=== PATIENT | female | born 1935 | race Caucasian/White ===

== ENCOUNTER 2023-11-13 21:26 | Emergency (ER) | payer MEDICARE ==
[~2023-11-13] VITALS: Ht 162.6 cm; Wt 79.4 kg
[2023-11-13 21:44] VITALS: BP 111/54; TEMP 98; O2SAT 98
[2023-11-13] MEDS ORDERED: FLUORESCEIN SODIUM OPHTH 1 EA STRIP ONE (21:52)
[2023-11-13] MEDS ORDERED: TETRAcaine 5 ML BOTTLE ONE (21:52)
[2023-11-13] MEDS ORDERED: AMOX875T2 PO (22:38)
[2023-11-13] MEDS ORDERED: POLY10DR OP (22:38)
[2023-11-13] MEDS ORDERED: SULF1TAB48 PO (22:38)
[2023-11-13] MEDS ORDERED: AMOXICILLIN TRIHYDRATE 250 MG CAPSULE ONE (22:40)
[2023-11-13] MEDS ORDERED: SULFAMETH/TRIMETH 800/160 MG 1 UDTAB TABLET ONE (22:41)
[2023-11-13] MEDS: SULFAMETH/TRIMETH 800/160 MG 1 UDTAB TABLET PO ONE (22:50)
[2023-11-13] MEDS: AMOXICILLIN TRIHYDRATE 500 MG CAPSULE PO ONE (22:50)
[2023-11-14] MEDS ORDERED: LEVO50TA8 PO (10:40)
[2023-11-14] MEDS ORDERED: TAMS-12 PO (10:40)
[2023-11-14] MEDS ORDERED: MULTIVITAMIN GUMMIES PO (10:40)
[2023-11-14] MEDS ORDERED: ACET500C4 PO (10:40)
[2023-11-14] MEDS ORDERED: GUAI5SYR PO (10:40)
[2023-11-14] MEDS ORDERED: MELATONIN GUMMIES PO (10:40)
[2023-11-14] MEDS ORDERED: IMIP10TA5 PO (10:40)
[2023-11-14] MEDS ORDERED: PREG-59 PO (10:40)
[2023-11-14] MEDS ORDERED: EZET10TA16 PO (10:40)
[2023-11-14] MEDS ORDERED: LACT10SO29 PO (10:40)
[2023-11-14] MEDS ORDERED: CALC-1257 PO (10:40)
[2023-11-14] MEDS ORDERED: SERT50TA PO (10:40)
[2023-11-14] MEDS ORDERED: ERGO500093 PO (10:40)
[2023-11-14] MEDS ORDERED: MEMA10TA PO (10:40)
== END 2023-11-14 01:14 ==
LOC: ER 21:40
DX: L03.213 Periorbital cellulitis (principal); H10.89 Other conjunctivitis; F03.90 Unspecified dementia, unspecified severity, without behavioral disturbance, psychotic disturbance, mood disturbance, and anxiety; E03.9 Hypothyroidism, unspecified

== ENCOUNTER 2023-11-14 03:20 | Inpatient (IN) | payer MEDICARE ==
[~2023-11-14] VITALS: Ht 162.6 cm; Wt 84.4 kg
[~2023-11-14 03:20] MED LIST: AMOX875T2 PO; POLY10DR OP; SULF1TAB48 PO
[2023-11-14] MEDS ORDERED: VANCOMYCIN 1 GM /D5W 250 ML PB IV ONE (03:57)
[2023-11-14] MEDS ORDERED: PIPERACI/TAZO 3.375GM/D5W 50ML PB IV ONE (03:57)
[2023-11-14] MEDS: PIPERACILLIN /TAZOBACTAM 3.375 G in IV D5W 50 ML IV ONE (04:00)
[2023-11-14] MEDS: IV NS 0.9% 1,000 ML BAG IV ONE (04:00)
[2023-11-14 04:21] LABS: BASOPHILS # (AUTO) 0.1 K/uL (0.0-0.2); BASOPHILS % (AUTO) 0.7 % (0.0-2.0); EOSINOPHILS # (AUTO) 0.1 K/uL (0.0-0.7); EOSINOPHILS % (AUTO) 0.7 % (0.0-6.0); HEMATOCRIT 39 % (33-45); HEMOGLOBIN 13.1 g/dL (11.5-14.8); LYMPHOCYTES # (AUTO) 1.1 K/uL (0.8-4.8); LYMPHOCYTES % (AUTO) 10.9 % (20.0-44.0); MEAN CORPUSCULAR HEMOGLOBIN 30 PG (26.0-33.0); MEAN CORPUSCULAR HGB CONC 33 g/dl (31.0-36.0); MEAN CORPUSCULAR VOLUME 90 fL (82-100); MONOCYTES # (AUTO) 1.1 K/uL (0.1-1.30); NEUTROPHILS % (AUTO) 76.7 % (43.0-81.0); PLATELET COUNT (AUTO) 254 K/uL (150-450); RED BLOOD CELL COUNT(AUTO) 4.38 MIL/uL (4.0-5.2); RED CELL DISTRIBUTION WIDTH 15.1 % (11.5-15.0); WHITE BLOOD COUNT (AUTO) 10.4 K/uL (4.3-11.0)
[2023-11-14 04:31] LABS: APPEARANCE,URINE CLEAR (CLEAR); BILIRUBIN,URINE NEGATIVE (NEGATIVE); BLOOD, URINE NEGATIVE Ery/uL (NEGATIVE); COLOR,URINE YELLOW (YELLOW); KETONES,URINE NEGATIVE (NEGATIVE); LEUKOCYTE ESTERASE ,URINE NEGATIVE (NEGATIVE); NITRITE, URINE NEGATIVE (NEGATIVE); PH,URINE 6.5 (5.0-8.0); PROTEIN,URINE NEGATIVE (NEGATIVE); UGLUCOSE NEGATIVE (NEGATIVE); UROBILINOGEN,URINE 0.2 EU/dL (0.2)
[2023-11-14 04:35] LABS: INR 1.03 (0.91-1.10); PARTIAL THROMBOPLASTIN TIME 23.4 SEC (24.3-34.3); PROTHROMBIN TIME 10.9 SECS (9.2-11.1)
[2023-11-14 04:42] LABS: LACTIC ACID 0.9 mmol/L (0.4-2.0)
[2023-11-14] MEDS: VANCOMYCIN 1 GM in IV D5W 250 ML IV ONE (04:45)
[2023-11-14 04:59] LABS: SITE, VBG Other; VBG BASE EXCESS -4.1 mmol/L (-3-3); VBG COHb 0.8 %; VBG MetHb 0.4 %; VBG O2Hb 72.4 %; VBG OXYGEN SATURATION 73.3 %; VBG PCO2 29.1 mmHg (40-52); VBG PH 7.431 (7.31-7.41); VBG PO2 37.4 mmHg (30-50); VBG TOTAL HEMOGLOBIN 13.7 G/dL (12.0-16.0); VENT MODE, VBG Nasal Cannula
[2023-11-14 04:59] LABS: CALCIUM, SERUM 8.8 mg/dL (8.5-10.1); POTASSIUM 3.7 mmol/L (3.5-5.1)
[2023-11-14] MEDS ORDERED: ONDANSETRON HCL/PF 4 MG/2 ML VIAL IVP PRN (05:00)
[2023-11-14] MEDS ORDERED: MAGNESIUM HYDROXIDE 30 ML UDC PO PRN (05:00)
[2023-11-14] MEDS ORDERED: VANCOMYCIN HCL 1.25 GM in IV D5W 250 ML IV SCH (05:00)
[2023-11-14] MEDS ORDERED: CEFEPIME 1 GM in IV D5W 50 ML IV SCH (05:00)
[2023-11-14] MEDS ORDERED: ACETAMINOPHEN 325 MG TABLET PO PRN (05:00)
[2023-11-14] MEDS ORDERED: MAG HYDROX/AL HYDROX/SIMETH 30 ML UDC PO PRN (05:00)
[2023-11-14] MEDS ORDERED: ZOLPIDEM TARTRATE 5 MG TABLET PO PRN (05:00)
[2023-11-14 05:04] LABS: ALBUMIN 2.9 g/dL (3.4-5.0); BILIRUBIN,DIRECT 0.2 mg/dL (0.0-0.2); BILIRUBIN,TOTAL 0.6 mg/dL (0.2-1.0); TOTAL PROTEIN, SERUM 7.3 g/dL (6.4-8.2)
[2023-11-14] MEDS ORDERED: IOHEXOL-350 100 ML VIAL IV ONE (05:14)
[2023-11-14] MEDS ORDERED: IV NS 0.9% 250 ML IV ONE (05:14)
[2023-11-14] MEDS: CEFEPIME 1 GM in IV D5W 50 ML IV SCH (07:58)
[2023-11-14] MEDS: IV NS 0.9% 1,000 ML IV PRN (09:58)
[2023-11-14 10:00] VITALS: BP 118/60; TEMP 97.3; O2SAT 93
[2023-11-14] MEDS ORDERED: PREG-59 PO (10:40)
[2023-11-14] MEDS ORDERED: LEVO50TA8 PO (10:40)
[2023-11-14] MEDS ORDERED: CALC-1257 PO (10:40)
[2023-11-14] MEDS ORDERED: MELATONIN GUMMIES PO (10:40)
[2023-11-14] MEDS ORDERED: MULTIVITAMIN GUMMIES PO (10:40)
[2023-11-14] MEDS ORDERED: TAMS-12 PO (10:40)
[2023-11-14] MEDS ORDERED: GUAI5SYR PO (10:40)
[2023-11-14] MEDS ORDERED: SERT50TA PO (10:40)
[2023-11-14] MEDS ORDERED: IMIP10TA5 PO (10:40)
[2023-11-14] MEDS ORDERED: MEMA10TA PO (10:40)
[2023-11-14] MEDS ORDERED: ACET500C4 PO (10:40)
[2023-11-14] MEDS ORDERED: EZET10TA16 PO (10:40)
[2023-11-14] MEDS ORDERED: ERGO500093 PO (10:40)
[2023-11-14] MEDS ORDERED: LACT10SO29 PO (10:40)
[2023-11-14 12:00] VITALS: BP 123/51; TEMP 98.2; O2SAT 94
[2023-11-14] MEDS: ENOXAPARIN SODIUM 40 MG/0.4 ML DISP.SYRIN SQ SCH (14:16)
[2023-11-14] MEDS: IMIPRAMINE 10 MG TABLET PO SCH (15:30)
[2023-11-14] MEDS: LEVOTHYROXINE SODIUM 50 MCG TABLET PO SCH (15:54)
[2023-11-14 16:00] VITALS: BP 126/76; O2SAT 92
[2023-11-14] MEDS: MEMANTINE HCL 5 MG TABLET PO SCH (16:12)
[2023-11-14] MEDS: TAMSULOSIN 0.4 MG CAP.SR.24H PO SCH (16:12)
[2023-11-14] MEDS: SERTRALINE HCL 50 MG TABLET PO SCH (16:12)
[2023-11-14] MEDS: PREGABALIN 100 MG CAPSULE PO SCH (16:13)
[2023-11-14 20:00] VITALS: BP 164/56; TEMP 98.4; O2SAT 92; O2SAT 94
[2023-11-15] VITALS: BP 145/63; TEMP 98.2; O2SAT 94; O2SAT 95
[2023-11-15 04:00] VITALS: BP 139/67; TEMP 98; O2SAT 95
[2023-11-15] MEDS: VANCOMYCIN HCL 1.25 GM in IV D5W 250 ML IV SCH (04:22)
[2023-11-15 06:46] LABS: BASOPHILS # (AUTO) 0.1 K/uL (0.0-0.2); BASOPHILS % (AUTO) 0.8 % (0.0-2.0); EOSINOPHILS # (AUTO) 0.2 K/uL (0.0-0.7); EOSINOPHILS % (AUTO) 1.9 % (0.0-6.0); HEMATOCRIT 36 % (33-45); HEMOGLOBIN 12.4 g/dL (11.5-14.8); LYMPHOCYTES # (AUTO) 1.2 K/uL (0.8-4.8); LYMPHOCYTES % (AUTO) 11.6 % (20.0-44.0); MEAN CORPUSCULAR HEMOGLOBIN 30 PG (26.0-33.0); MEAN CORPUSCULAR HGB CONC 34 g/dl (31.0-36.0); MEAN CORPUSCULAR VOLUME 89 fL (82-100); MONOCYTES # (AUTO) 0.9 K/uL (0.1-1.30); MONOCYTES % (AUTO) 8.4 % (2.0-12.0); NEUTROPHILS # (AUTO) 7.9 K/uL (1.8-8.9); NEUTROPHILS % (AUTO) 77.3 % (43.0-81.0); PLATELET COUNT (AUTO) 257 K/uL (150-450); RED BLOOD CELL COUNT(AUTO) 4.08 MIL/uL (4.0-5.2); RED CELL DISTRIBUTION WIDTH 14.6 % (11.5-15.0); WHITE BLOOD COUNT (AUTO) 10.2 K/uL (4.3-11.0)
[2023-11-15 07:11] LABS: ALBUMIN 2.6 g/dL (3.4-5.0); BILIRUBIN,TOTAL 0.5 mg/dL (0.2-1.0); POTASSIUM 3.4 mmol/L (3.5-5.1); TOTAL PROTEIN, SERUM 6.9 g/dL (6.4-8.2)
[2023-11-15 07:42] LABS: CALCIUM, SERUM 8.3 mg/dL (8.5-10.1); PHOSPHORUS 2.6 mg/dL (2.5-4.9)
[2023-11-15 08:00] VITALS: BP 117/70
[2023-11-15] MEDS: EZETIMIBE 10 MG TABLET PO SCH (08:11)
[2023-11-15] MEDS: POTASSIUM CHLORIDE 20 MEQ TAB.PRT.SR PO SCH (10:29)
[2023-11-15 16:00] VITALS: BP 99/51; TEMP 97.5; O2SAT 92
[2023-11-15] MEDS: CEFEPIME 2 GM in IV D5W 100 ML IV SCH (17:08)
[2023-11-16 11:30] LABS: BASOPHILS # (AUTO) 0.1 K/uL (0.0-0.2); BASOPHILS % (AUTO) 1.1 % (0.0-2.0); EOSINOPHILS # (AUTO) 0.3 K/uL (0.0-0.7); EOSINOPHILS % (AUTO) 3.1 % (0.0-6.0); HEMATOCRIT 39 % (33-45); HEMOGLOBIN 13.1 g/dL (11.5-14.8); LYMPHOCYTES % (AUTO) 12.3 % (20.0-44.0); MEAN CORPUSCULAR HEMOGLOBIN 30 PG (26.0-33.0); MEAN CORPUSCULAR HGB CONC 34 g/dl (31.0-36.0); MEAN CORPUSCULAR VOLUME 89 fL (82-100); MONOCYTES # (AUTO) 0.8 K/uL (0.1-1.30); MONOCYTES % (AUTO) 10.4 % (2.0-12.0); NEUTROPHILS # (AUTO) 5.9 K/uL (1.8-8.9); NEUTROPHILS % (AUTO) 73.1 % (43.0-81.0); PLATELET COUNT (AUTO) 313 K/uL (150-450); RED BLOOD CELL COUNT(AUTO) 4.39 MIL/uL (4.0-5.2); RED CELL DISTRIBUTION WIDTH 14.7 % (11.5-15.0); WHITE BLOOD COUNT (AUTO) 8.1 K/uL (4.3-11.0)
[2023-11-16 12:01] LABS: ALBUMIN 2.5 g/dL (3.4-5.0); BILIRUBIN,TOTAL 0.3 mg/dL (0.2-1.0); CALCIUM, SERUM 8.4 mg/dL (8.5-10.1); MAGNESIUM 2.1 mg/dL (1.8-2.4); PHOSPHORUS 2.9 mg/dL (2.5-4.9); POTASSIUM 3.7 mmol/L (3.5-5.1)
[2023-11-16 20:00] VITALS: BP 135/61; TEMP 97.7; O2SAT 93
[2023-11-16] MEDS: Z GUARD REMEDY 4 OZ OINT TP PRN (23:01)
[2023-11-17] MEDS: OLANZAPINE 10 MG VIAL IM ONE (01:06)
[2023-11-17 04:31] LABS: BASOPHILS # (AUTO) 0.1 K/uL (0.0-0.2); BASOPHILS % (AUTO) 1.4 % (0.0-2.0); EOSINOPHILS # (AUTO) 0.3 K/uL (0.0-0.7); EOSINOPHILS % (AUTO) 4.2 % (0.0-6.0); HEMATOCRIT 42 % (33-45); HEMOGLOBIN 14.2 g/dL (11.5-14.8); LYMPHOCYTES # (AUTO) 1.3 K/uL (0.8-4.8); LYMPHOCYTES % (AUTO) 17.7 % (20.0-44.0); MEAN CORPUSCULAR HEMOGLOBIN 30 PG (26.0-33.0); MEAN CORPUSCULAR HGB CONC 34 g/dl (31.0-36.0); MEAN CORPUSCULAR VOLUME 89 fL (82-100); MONOCYTES # (AUTO) 0.8 K/uL (0.1-1.30); MONOCYTES % (AUTO) 11.8 % (2.0-12.0); NEUTROPHILS # (AUTO) 4.6 K/uL (1.8-8.9); NEUTROPHILS % (AUTO) 64.9 % (43.0-81.0); PLATELET COUNT (AUTO) 324 K/uL (150-450); RED BLOOD CELL COUNT(AUTO) 4.71 MIL/uL (4.0-5.2); RED CELL DISTRIBUTION WIDTH 14.6 % (11.5-15.0); WHITE BLOOD COUNT (AUTO) 7.1 K/uL (4.3-11.0)
[2023-11-17 04:58] LABS: ALBUMIN 2.7 g/dL (3.4-5.0); BILIRUBIN,TOTAL 0.4 mg/dL (0.2-1.0); CALCIUM, SERUM 8.7 mg/dL (8.5-10.1); MAGNESIUM 2.3 mg/dL (1.8-2.4); PHOSPHORUS 3.1 mg/dL (2.5-4.9); POTASSIUM 3.4 mmol/L (3.5-5.1); TOTAL PROTEIN, SERUM 7.5 g/dL (6.4-8.2)
[2023-11-17] MEDS: POTASSIUM CHLORIDE 20 MEQ POWDER PACKET PO SCH (08:39)
[2023-11-17 10:17] VITALS: BP 160/79; TEMP 97.7; O2SAT 95
[2023-11-17 12:04] LABS: CARBON DIOXIDE 21 mmol/L (21-32); CHLORIDE 109 mmol/L (98-107); GLUCOSE 94 mg/dL (74-106); POTASSIUM 3.9 mmol/L (3.5-5.1); SODIUM SERUM 141 mmol/L (136-145); UREA NITROGEN, BLOOD 8 mg/dL (7-18)
== END 2023-11-17 15:35 | DRG 178 ==
LOC: ER 03:28 → TRANSITION 07:19 → TELE 08:25 → MED 11-16 09:37
DX: J15.69 Pneumonia due to other Gram-negative bacteria (principal); E44.1 Mild protein-calorie malnutrition; F03.90 Unspecified dementia, unspecified severity, without behavioral disturbance, psychotic disturbance, mood disturbance, and anxiety; H10.89 Other conjunctivitis; E86.0 Dehydration; Z20.822 Contact with and (suspected) exposure to COVID-19; E03.9 Hypothyroidism, unspecified; G47.00 Insomnia, unspecified; R33.9 Retention of urine, unspecified; Z66 Do not resuscitate; Z51.5 Encounter for palliative care; E88.09 Other disorders of plasma-protein metabolism, not elsewhere classified; Y95 Nosocomial condition; Z87.2 Personal history of diseases of the skin and subcutaneous tissue; Z79.899 Other long term (current) drug therapy; Z79.890 Hormone replacement therapy
CPT/HCPCS: 36415; 71045-TC; 80048-TC; 80053-TC; 80076-TC; 80202-TC; 82803-TC; 82962-TC; 83605-TC; 83735-TC; 83880; 84100-TC; 85025-TC; 85378-TC; 85730-TC; 87040-TC; 87086-TC; 92526; 92611-TC; 97110-TC; 97116-TC; 97530-TC; 97535-TC; A4223; G0378; J0692; J1650; J2543; J3370; J3490; J7030; J7050; J7060; J7120; Q9967

== ENCOUNTER 2024-01-27 13:08 | Emergency (ER) | payer MEDICARE ==
[~2024-01-27] VITALS: Ht 175.3 cm; Wt 94.3 kg
[~2024-01-27 13:08] MED LIST changes: +ACET500C4 PO; +CALC-1257 PO; +ERGO500093 PO; +EZET10TA16 PO; +GUAI5SYR PO; +IMIP10TA5 PO; +LACT10SO29 PO; +LEVO50TA8 PO; +MELATONIN GUMMIES PO; +MEMA10TA PO; +MULTIVITAMIN GUMMIES PO; +PREG-59 PO; +SERT50TA PO; +TAMS-12 PO
[2024-01-27] MEDS ORDERED: IBUP-1953 PO (17:29)
[2024-01-27 18:53] VITALS: BP 133/68; TEMP 98.7; O2SAT 99
== END 2024-01-27 18:54 | disposition home or self-care (01) ==
LOC: ER 13:13
DX: S22.31XA Fracture of one rib, right side, initial encounter for closed fracture (principal); F03.90 Unspecified dementia, unspecified severity, without behavioral disturbance, psychotic disturbance, mood disturbance, and anxiety; Z91.018 Allergy to other foods; E03.9 Hypothyroidism, unspecified; Z79.899 Other long term (current) drug therapy; X58.XXXA Exposure to other specified factors, initial encounter; Y93.89 Activity, other specified; Y92.89 Other specified places as the place of occurrence of the external cause; Y99.8 Other external cause status
CPT/HCPCS: 70450-TC; 71100-TC; 72125-TC; 72170-TC; 72192-TC

== ENCOUNTER 2024-03-04 19:02 | Emergency (ER) | payer MEDICARE ==
[~2024-03-04] VITALS: Ht 167.6 cm; Wt 73.9 kg
[~2024-03-04 19:02] MED LIST changes: +IBUP-1953 PO
--- NOTE | 2024-03-04 19:11 | NUR ---
[id number] C/O R HIP PAIN. WITNESSED GLF TRYING TO STAND UP DURING DINNER, PLACED TO BED AND HOOKED INTO A MONITOR.
--- NOTE | 2024-03-04 19:23 | NUR ---
HUSBANDRY TECHNICIAN AT BEDSIDE
--- NOTE | 2024-03-04 19:29 | NUR ---
[facility],
[2024-03-04] MEDS ORDERED: LORA-258 PO (19:39)
--- NOTE | 2024-03-04 20:13 | NUR ---
[facility] CALLED FOR BLS GOING BACK TO SNF PER DISPATCH ETA - 15 MIN
--- NOTE | 2024-03-04 20:20 | NUR ---
called [facility] Patient care management associate aware that patient is being dicscharge and waiting for trasportation to transfer back to their facility
--- NOTE | 2024-03-04 20:40 | NUR ---
[facility] CAME, Patient discharged to [facility] in stable condition. Written and verbal after care instructions given.
[2024-03-04 20:46] VITALS: BP 157/80; TEMP 98.7; O2SAT 94
== END 2024-03-04 20:46 ==
LOC: ER 19:07
DX: M25.551 Pain in right hip (principal); M25.511 Pain in right shoulder; F03.90 Unspecified dementia, unspecified severity, without behavioral disturbance, psychotic disturbance, mood disturbance, and anxiety; E03.9 Hypothyroidism, unspecified; Z79.1 Long term (current) use of non-steroidal anti-inflammatories (NSAID); Z79.899 Other long term (current) drug therapy; W18.39XA Other fall on same level, initial encounter; Y93.89 Activity, other specified; Y92.89 Other specified places as the place of occurrence of the external cause; Y99.8 Other external cause status
CPT/HCPCS: 73030-TC; 73502